=== PATIENT | female | born 1995 | race Caucasian/White ===

== ENCOUNTER 2019-12-01 03:04 | Emergency (ER) | payer OTHER, SELFPAY ==
[2019-12-01 03:06] VITALS: BP 122/91; PULSE 93; RESP 16; TEMP 36.6; O2SAT 100; BMI 38.0
[2019-12-01 03:32] LABS: Add Manual Diff / Slide Review NO; Basophils Absolute Auto 100 /uL (0-100); Basophils Percent Auto 0.6 % (0-2); Eosinophils Absolute Auto 100 /uL (0-450); Eosinophils Percent Auto 0.9 % (2-4); Hematocrit 40.8 % (36-46); Hemoglobin 14.2 g/dL (12.0-16.0); Lymphocytes Absolute Auto 2500 /uL (1100-4500); Mean Corpuscular HGB Conc 34.8 % (30-36); Mean Corpuscular Hemoglobin 32.3 PG (26-34); Mean Corpuscular Volume 92.9 fL (80-100); Monocytes Absolute Auto 600 /uL (0-900); Monocytes Percent Auto 6.7 % (3-14); Neutrophils Absolute Auto 5800 /uL (1500-7000); Neutrophils Percent Auto 63.8 % (50-75); Platelet Count 227 X10^3/uL (150-400); Red Blood Cell Count 4.39 X10^6/uL (4.0-5.2); Red Cell Distribution Width 12.6 % (11.6-14.8)
[2019-12-01 03:37] LABS: BUN Creatinine Ratio 10.7 (6-22); Blood Urea Nitrogen 9 mg/dL (7-17); Calcium 9.3 mg/dL (8.4-10.2); Carbon Dioxide 25 mmol/L (22-32); Chloride 106 mmol/L (98-107); Estimated Glomerular Filt Rate > 60.0 mL/min (>60); Glucose 91 mg/dL (70-100); HEMOLYSIS < 15 (0-50); Potassium 3.7 mmol/L (3.4-5.1); Sodium 137 mmol/L (137-145)
[2019-12-01 03:49] LABS: Pregnancy Test Serum,Qual Negative (Negative)
--- NOTE | 2019-12-01 03:50 | DI.US.S_ITS ---
PROCEDURE: US PELVIC COMPLETE INDICATIONS: DUB; PAIN TECHNIQUE: Real-time scanning was performed of the pelvic organs, with image documentation. Additional endovaginal scanning was necessary due to incomplete visualization of the adnexal and endometrial structures by transabdominal scanning. COMPARISON: None. FINDINGS: Transabdominal scanning: Limited scanning through the kidneys shows no hydronephrosis. No pathologic free abdominal or pelvic fluid. Endovaginal scanning: Uterus: Uterus is normal in size at 5.8 x 3.5 x 5.2 cm. The endometrium measures 0.5 cm in combined thickness. Ovaries: Right ovary measures 2.3 x 1.6 x 1.6 cm and the left ovary measures 2.6 x 1.8 x 1.3 cm. No adnexal masses. There is patent arterial flow demonstrated in the ovaries on Doppler interrogation. IMPRESSION: 1. Normal sonographic study of the pelvis. Dictated by: Yobany Matthew M.D. on 12/01/2019 at 9:23 Approved by: Yobany Matthew M.D. on 12/01/2019 at 9:25
[2019-12-01 03:54] LABS: Bacteria Urine None Seen; WBC Urine None Seen (0-5/HPF)
--- NOTE | 2019-12-01 04:00 | ED.ABDPAIN ---
HPI - Abdominal Pain General Chief Complaint: Abdominal Pain Stated Complaint: abdominal pain Time Seen by Provider: 12/01/19 03:06 Source: patient Mode of arrival: Ambulatory Limitations: no limitations History of Present Illness HPI narrative: 24F nonsmoker without chronic medical problems presents with a chief complaint of severe lower pelvic discomfort over the course of the night. She denies much in the way of specific provocation, palliation or radiation. She has had some dysuria and frequency but denies any fever, chills or back pain. She states that she had some problems with heavy menses a few months ago and had an alteration in her all control and has largely been better since then. She does state that she has had vaginal bleeding off and on for about the last month but denies any chance of . MD complaint: abdominal pain Onset (ago): hour(s) Pain Consistency: constant Location: suprapubic Severity: moderate Quality: cramping and aching Radiation: none Migration to: no migration Relieving factors: rest Exacerbating factors: movement Associated symptoms: nausea and dysuria Related Data Previous Rx's Medication Instructions Recorded ketorolac 10 mg PO Q6H PRN #14 tab 12/01/19 Review of Systems Constitutional Constitutional: Denies chills, Denies fatigue, Denies fever(s), Denies frequent falls, Denies lethargy and Denies weakness Eyes Eyes: Denies change in vision, Denies eye discharge, Denies irritation and Denies loss of vision ENT Ears, Nose, Mouth, and Throat: Denies change in voice, Denies dizziness, Denies neck pain, Denies sore throat and Denies throat swelling Cardiovascular Cardiovascular: Denies chest pain, Denies irregular heart rhythm, Denies lightheadedness, Denies palpitations, Denies dyspnea, Denies dyspnea on exertion and Denies orthopnea Respiratory Respiratory: Denies cough, Denies dyspnea, Denies dyspnea on exertion and Denies wheezing Gastrointestinal Gastrointestinal: Reports abdominal pain, Denies change in bowel habits, Denies diarrhea, Reports nausea and Denies vomiting Genitourinary Genitourinary: Reports difficulty urinating Genitourinary: Reports abnormal menses, Reports abnormal vaginal bleeding and Reports metrorrhagia Musculoskeletal Musculoskeletal: Denies neck pain and Denies numbness Integumentary/Breasts Skin/Breast: Denies pruritus, Denies erythema, Denies rash and Denies wounds Neurologic Neurologic: Denies behavioral changes, Denies confusion, Denies dizziness, Denies frequent falls, Denies loss of vision, Denies numbness and Denies weakness Psychiatric Psychiatric: Denies anxiety, Denies behavioral changes, Denies confusion, Denies depression, Denies homicidal ideation and Denies suicidal ideation Endocrine Endocrine: Denies fatigue, Denies flushing and Denies palpitations Hematologic/Lymphatic Hematologic/Lymphatic: Denies easy bruising Allergic/Immunologic Allergic/Immunologic: Denies urticaria, Denies throat swelling and Denies wheezing Patient History Social History Smoking Status: Never smoker Smoking Status: Never smoker Substance Use Type: does not use Exam Narrative Exam Narrative: GENERAL: [24] year old patient appears stated age. Well-nourished, well-developed patient, in moderate distress, obviously uncomfortable HEAD: Atraumatic. Normocephalic. EYES: Pupils equal round and reactive. Extraocular motions intact. No scleral icterus. No injection or drainage. ENT: Nose without bleeding, purulent drainage. Throat without erythema, tonsillar hypertrophy or exudate. Airway patent. NECK: Trachea midline. Non tender CARDIOVASCULAR: Regular rate and rhythm without murmurs, gallops, or rubs. RESPIRATORY: Clear to auscultation. Breath sounds equal bilaterally. No wheezes, rales, or rhonchi. GASTROINTESTINAL: Abdomen soft, tender in the suprapubic region, nondistended. EXTREMITIES: No edema or joint tenderness. BACK: Nontender without deformity or crepitance. No flank tenderness. NEURO: AOx3. SKIN: No rash or erythema of visible areas Initial Vital Signs Initial Vital Signs: Vital Signs Temperature 97.9 F 12/01/19 03:06 Pulse Rate 93 H 12/01/19 03:06 Respiratory Rate 16 12/01/19 03:06 Blood Pressure 122/91 H 12/01/19 03:06 Pulse Oximetry 100 12/01/19 03:06 Course Orders Ordered: ED Orders 12/01/19 03:19 Basic Metabolic Panel Stat Complete Blood Count AUTO DIFF Stat Test Serum,Qual Stat 12/01/19 03:43 Urine Microscopic Stat 12/01/19 03:50 US pelvic complete Stat Discontinued Medications Sodium Chloride (Normal Saline 0.9%) 1,000 mls @ 1,000 mls/hr IV BOLUS ONE Stop: 12/01/19 04:16 Last Admin: 12/01/19 04:07 Dose: 1,000 mls/hr Documented by: GARO Ketorolac Tromethamine (Toradol) 15 mg IV NOW ONE Stop: 12/01/19 03:51 Last Admin: 12/01/19 04:08 Dose: 15 mg Documented by: GARO Vital Signs Vital signs: Vital Signs - 8 hr 12/01/19 03:06 12/01/19 04:08 Temperature 97.9 F 98.6 F Pulse Rate 93 H Respiratory Rate 16 Blood Pressure 122/91 H Pulse Oximetry 100 MDM - Abdominal Pain Lab Data Result diagrams: 12/01/19 03:19 12/01/19 03:19 Labs: Lab Results 12/01/19 12/01/19 12/01/19 Range/Units 03:19 03:19 03:19 WBC 9.0 (4.5-11.0) X10^3/uL RBC 4.39 (4.0-5.2) X10^6/uL Hgb 14.2 (12.0-16.0) g/dL Hct 40.8 (36-46) % MCV 92.9 (80-100) fL MCH 32.3 (26-34) PG MCHC 34.8 (30-36) % RDW 12.6 (11.6-14.8) % Plt Count 227 (150-400) X10^3/uL Neut % (Auto) 63.8 (50-75) % Lymph % (Auto) 28.0 (25-40) % [place] % (Auto) 6.7 (3-14) % Eos % (Auto) 0.9 L (2-4) % Baso % (Auto) 0.6 (0-2) % Neut # (Auto) 5800 (5379-0300) /uL Lymph # (Auto) 2500 (3729-7466) /uL [place] # (Auto) 600 (0-900) /uL Eos # (Auto) 100 (0-450) /uL Baso # (Auto) 100 (0-100) /uL Sodium 137 (137-145) mmol/L Potassium 3.7 (3.4-5.1) mmol/L Chloride 106 (98-107) mmol/L Carbon Dioxide 25 (22-32) mmol/L BUN 9 (7-17) mg/dL Creatinine 0.84 (0.52-1.04) mg/dL Estimated GFR > 60.0 (>60) mL/min BUN/Creatinine Ratio 10.7 (6-22) Glucose 91 (70-100) mg/dL Calcium 9.3 (8.4-10.2) mg/dL Serum , Qual Negative (Negative) Urine RBC (0-5/HPF) Urine WBC (0-5/HPF) Ur Squamous Epith Cells (0-5/HPF) Urine Bacteria (None) Ur Culture Indicated? 12/01/19 Range/Units 03:43 WBC (4.5-11.0) X10^3/uL RBC (4.0-5.2) X10^6/uL Hgb (12.0-16.0) g/dL Hct (36-46) % MCV (80-100) fL MCH (26-34) PG MCHC (30-36) % RDW (11.6-14.8) % Plt Count (150-400) X10^3/uL Neut % (Auto) (50-75) % Lymph % (Auto) (25-40) % [place] % (Auto) (3-14) % Eos % (Auto) (2-4) % Baso % (Auto) (0-2) % Neut # (Auto) (8530-9796) /uL Lymph # (Auto) (1772-7716) /uL [place] # (Auto) (0-900) /uL Eos # (Auto) (0-450) /uL Baso # (Auto) (0-100) /uL Sodium (137-145) mmol/L Potassium (3.4-5.1) mmol/L Chloride (98-107) mmol/L Carbon Dioxide (22-32) mmol/L BUN (7-17) mg/dL Creatinine (0.52-1.04) mg/dL Estimated GFR (>60) mL/min BUN/Creatinine Ratio (6-22) Glucose (70-100) mg/dL Calcium (8.4-10.2) mg/dL Serum , Qual (Negative) Urine RBC 10-30/hpf H (0-5/HPF) Urine WBC None seen (0-5/HPF) Ur Squamous Epith Cells 0-1 /hpf (0-5/HPF) Urine Bacteria None seen (None) Ur Culture Indicated? Cult not indicated Point of care testing: Point of Care Testing Test Results Negative Urine Dip Bedside Urine Glucose Negative Bedside Urine Bilirubin - Negative Bedside Urine Ketone - Negative Urine Specific [place] 1.015 Bedside Urine Occult Blood +++ Bedside Urine pH 7.0 Bedside Urine Protein - Negative Bedside Urine Urobilinogen - Negative Bedside Urine Nitrite - Negative Bedside Urine Leukocytes - Negative Esterase Imaging Data [place] - [employer]: Radiologist's Impression: no significant abnormality MDM Narrative Medical decision making narrative: Multiple etiologies for patient's symptoms considered including: [Ectopic versus endometriosis versus urinary tract infection vs other] Patient's symptoms improved or duration of stay with above-stated therapies. Findings and discharge diagnosis discussed with patient/family followed by verbalization of understanding Return precautions discussed with patient/family whom verbalize understanding. Discharge Plan Departure Patient Disposition: Home Clinical Impression: Pelvic pain Instructions: DI for Pelvic Pain Activity Restrictions/Additional Instructions: *You have been diagnosed with [pelvic pain likely a gynecologic problem] *What to do: *Take medications as directed *Follow up with your primary care provider in 2-3 days, call for an appointment. Let them know you were seen in the Emergency Department and that we ask that you be seen in follow up *Return to ER if you should have any new, worsening or concerning symptoms, such as [increasing pain, persistent vomiting, fever >101F, vaginal bleeding through more than a pad per hour for multiple hours or other concerning symptoms ] Prescriptions: New ketorolac 10 mg tablet 10 mg PO Q6H PRN (Reason: pain) Qty: 14 RF: 0
[2019-12-01] MEDS: SODIUM CHLORIDE 0.9% 1,000 ML 1000 ML IV (04:07)
[2019-12-01 04:08] VITALS: TEMP 37
[2019-12-01] MEDS: KETOROLAC 60 MG/2 ML VIAL 15 MG IV (04:08)
[2019-12-01 04:12] LABS: Culture Indicated Urine Cult Not Indicated; RBC Urine 10-30/HPF (0-5/HPF); Squamous Epithelial Cell Urine 0-1 /HPF (0-5/HPF)
[2019-12-01 05:24] VITALS: BP 112/70; PULSE 77; RESP 16; TEMP 36.8; O2SAT 99
== END 2019-12-01 05:24 | disposition home or self-care (01) ==
PROVIDERS: Emergency Provider Emergency Medicine
DX: R10.2 Pelvic and perineal pain (principal); R30.0 Dysuria
CPT/HCPCS: 36415; 76830; 76856; 80048; 81003; 81015; 81025; 84703; 85025; 96361; 96374; 99284; J1885

== ENCOUNTER → 2020-10-15 07:56 | Outpatient (CLI) | payer OTHER, SELFPAY ==
[2020-10-15] MEDS: COVID-19 VACC #1, MRNA(MOD) 100 MCG/0.5 ML VIAL IM (08:05)
== END ==
PROVIDERS: Visit Provider Internal Medicine
DX: Z23 Encounter for immunization (principal)
CPT/HCPCS: 0011A; 91301

== ENCOUNTER → 2020-11-12 07:50 | Outpatient (CLI) | payer OTHER, SELFPAY ==
[2020-11-12] MEDS: COVID-19 VACC #2, MRNA(MOD) 100 MCG/0.5 ML VIAL IM (07:57)
== END ==
PROVIDERS: Visit Provider Internal Medicine
DX: Z23 Encounter for immunization (principal)
CPT/HCPCS: 0012A; 91301

== ENCOUNTER 2023-08-14 16:54 | Emergency (ER) | payer OTHER, SELFPAY ==
[2023-08-14 17:03] VITALS: BP 116/75; PULSE 72; RESP 18; TEMP 36.5; O2SAT 98; BMI 17.2
--- NOTE | 2023-08-14 17:08 | DI.US.S_ITS ---
PROCEDURE: US PELVIC COMPLETE INDICATIONS: BLEEDING. HOME + . [facility] - TECHNIQUE: Real-time scanning was performed of the pelvic organs, with image documentation. Additional endovaginal scanning was necessary due to incomplete visualization of the adnexal and endometrial structures by transabdominal scanning. COMPARISON: [facility], US, US PELVIC COMPLETE, 12/01/2019, 4:26. FINDINGS: Uterus: Uterus is anteverted and normal in size at 6.7 x 3.3 x 5.1 cm. The myometrium is homogeneous. The endometrium measures 4.9 mm combined thickness. No IUP is identified. Ovaries: The right ovary measures 2.4 x 3.0 x 1.9 cm, with a calculated ovarian volume of 7.2 cc. The left ovary measures 2.5 x 1.6 x 1.9 cm, with a calculated ovarian volume of 4.1 cc. The ovaries have a normal sonographic appearance. Less than 12 follicles can be seen in each ovary. No adnexal masses are seen. Other: No pathologic free abdominal or pelvic fluid. IMPRESSION: 1. No IUP is identified or ectopic presence is identified. The finding may be secondary to early . Recommend clinical correlation and follow-up imaging if clinically indicated. 2. Normal ovaries. We strive to produce accurate, complete, and clear reports of imaging services. To assist us in improving patient care, this report was composed using standard report templates and voice recognition software. Therefore, it may contain abnormal punctuation, insertions and/or omissions. Occasional wrong-word or sound-alike substitutions may occur. Though we review the report and make efforts to correct it, we do recommend that the report be read carefully in proper context to recognize any text inaccuracies. Dictated by: Mariangel Agosto M.D. on 08/14/2023 at 18:14 Approved by: Mariangel Agosto M.D. on 08/14/2023 at 18:16
[2023-08-14 17:47] LABS: Bacteria Urine Occasional (0-1); Culture Indicated Urine Cult Not Indicated; RBC Urine 1-5/HPF (0-5/HPF); Squamous Epithelial Cell Urine 0-1 /HPF (0-5/HPF); Urine Volume 10mL (spun); WBC Urine 0-1/HPF (0-5/HPF)
[2023-08-14 17:57] LABS: Alanine Aminotransferase 16 IU/L (<35); Albumin 4.5 g/dL (3.5-5.0); Albumin Globulin Ratio 1.3 (1.0-2.8); Alkaline Phosphatase 63 U/L (38-126); Aspartate Aminotransferase 24 IU/L (14-36); BUN Creatinine Ratio 14.3 (6-22); Bilirubin Total 0.5 mg/dL (0.2-1.3); Blood Urea Nitrogen 11 mg/dL (7-17); Calcium 9.2 mg/dL (8.4-10.2); Carbon Dioxide 25 mmol/L (22-32); Chloride 104 mmol/L (98-107); Estimated Glomerular Filt Rate > 60 mL/min (>60); Globulin 3.5 g/dL (1.7-4.1); Glucose 92 mg/dL (70-100); HEMOLYSIS < 15 (0-50); Potassium 3.5 mmol/L (3.4-5.1); Sodium 140 mmol/L (137-145)
--- NOTE | 2023-08-14 18:11 | ED_ITS ---
HPI - Female Genitourinary <Saloni Loo PA-C - Last Filed: 08/14/23 19:10> General Chief complaint: Urogenital-Female Stated complaint: 6 wks , vaginal bleeding Time Seen by Provider: 08/14/23 17:48 Source: patient Mode of arrival: Ambulatory History of Present Illness HPI Narrative: 28-year-old female presents to the ED with 1st trimester vaginal bleeding. Patient states she is 6 weeks , had 2 positive test, 1 at home and 1 in a clinic last week. Patient states that she started experiencing some pelvic cramping and vaginal bleeding 5 days ago. The bleeding and cramping has since then subsided, patient still has some mild spotting but no cramping. Patient denies fever, chills, chest pain, shortness of breath, abdominal pain, nausea, vomiting, dysuria, lightheadedness, dizziness, syncope. Related Data Previous Rx's Medication Instructions Recorded ketorolac 10 mg tablet 10 mg PO Q6H PRN pain #14 tabs 12/01/19 Allergies Allergy/AdvReac Type Severity Reaction Status Date / Time No Known Drug Allergies Allergy Verified 08/14/23 17:07 Review of Systems <Saloni Loo PA-C - Last Filed: 08/14/23 19:10> Constitutional Constitutional: Denies chills, Denies fatigue, Denies fever(s), Denies frequent falls, Denies lethargy and Denies weakness Eyes Eyes: Denies change in vision, Denies eye discharge, Denies irritation and Denies loss of vision ENT Ears, Nose, Mouth, and Throat: Denies change in voice, Denies dizziness, Denies neck pain, Denies sore throat and Denies throat swelling Cardiovascular Cardiovascular: Denies chest pain, Denies irregular heart rhythm, Denies lightheadedness, Denies palpitations, Denies dyspnea, Denies dyspnea on exertion and Denies orthopnea Respiratory Respiratory: Denies cough, Denies dyspnea, Denies dyspnea on exertion and Denies wheezing Gastrointestinal Gastrointestinal: Denies abdominal pain, Denies change in bowel habits, Denies diarrhea, Denies nausea and Denies vomiting Genitourinary Genitourinary: Reports abnormal vaginal bleeding and Reports pelvic pain Musculoskeletal Musculoskeletal: Denies neck pain and Denies numbness Integumentary/Breasts Skin/Breast: Denies pruritus, Denies erythema, Denies rash and Denies wounds Neurologic Neurologic: Denies behavioral changes, Denies confusion, Denies dizziness, Denies frequent falls, Denies loss of vision, Denies numbness and Denies weakness Psychiatric Psychiatric: Denies anxiety, Denies behavioral changes, Denies confusion, Denies depression, Denies homicidal ideation and Denies suicidal ideation Endocrine Endocrine: Denies fatigue, Denies flushing and Denies palpitations Hematologic/Lymphatic Hematologic/Lymphatic: Denies easy bruising Allergic/Immunologic Allergic/Immunologic: Denies urticaria, Denies throat swelling and Denies wheezing Patient History <Saloni Loo PA-C - Last Filed: 08/14/23 19:10> Substance Use Type: does not use Exam <ALEX Mckeon Last Filed: 08/14/23 19:10> Narrative Exam Narrative: Const General:?cooperative, healthy appearing and comfortable HENFL Head:?normal to inspection Ears:?hearing grossly normal bilaterally Nose:?external nose normal Face and sinus:?normal facial exam and sinuses nontender Mouth:?oral mucosae normal Throat:?posterior oropharynx normal Eyes General:?appearance normal, both eyes and all related structures Neck Neck:?normal visual inspection and no lymphadenopathy noted Resp Effort & Inspection:?normal respiratory effort Auscultation:?clear to auscultation bilaterally Cardio Rate:?regular rate Rhythm:?regular rhythm Neuro General:?patient alert, patient awake and patient oriented x3 Initial Vital Signs Initial Vital Signs: Vital Signs Temperature 97.7 F 08/14/23 17:03 Pulse Rate 72 08/14/23 17:03 Respiratory Rate 18 08/14/23 17:03 Blood Pressure 116/75 08/14/23 17:03 Pulse Oximetry 98 08/14/23 17:03 Oxygen Delivery Method Room Air 08/14/23 17:03 <Jackie Guerra DO - Last Filed: 08/17/23 23:20> Initial Vital Signs Initial Vital Signs: Vital Signs Temperature 97.7 F 08/14/23 17:03 Pulse Rate 72 08/14/23 17:03 Respiratory Rate 18 08/14/23 17:03 Blood Pressure 116/75 08/14/23 17:03 Pulse Oximetry 98 08/14/23 17:03 Oxygen Delivery Method Room Air 08/14/23 17:03 Course <Saloni Loo PA-C - Last Filed: 08/14/23 19:10> Orders Ordered: ED Orders 08/14/23 17:08 US pelvic complete Stat 08/14/23 17:15 Urine Microscopic Stat 08/14/23 17:25 Complete Blood Count AUTO DIFF Stat Comprehensive Metabolic Panel Stat HCG Quantitative /Beta subunit Stat 08/14/23 17:32 Type and Screen Stat Vital Signs Vital signs: Vital Signs - 8 hr 08/14/23 17:03 08/14/23 18:22 Temperature 97.7 F 98.2 F Pulse Rate 72 70 Respiratory Rate 18 16 Blood Pressure 116/75 105/67 Pulse Oximetry 98 100 Oxygen Delivery Method Room Air Room Air <Jackie Guerra DO - Last Filed: 08/17/23 23:20> Orders Ordered: ED Orders 08/14/23 17:08 US pelvic complete Stat 08/14/23 17:15 Urine Microscopic Stat 08/14/23 17:25 Complete Blood Count AUTO DIFF Stat Comprehensive Metabolic Panel Stat HCG Quantitative /Beta subunit Stat 08/14/23 17:32 Type and Screen Stat Vital Signs Vital signs: Vital Signs - 8 hr 08/14/23 17:03 08/14/23 18:22 Temperature 97.7 F 98.2 F Pulse Rate 72 70 Respiratory Rate 18 16 Blood Pressure 116/75 105/67 Pulse Oximetry 98 100 Oxygen Delivery Method Room Air Room Air MDM - Female Genitourinary <Saloni Loo PA-C - Last Filed: 08/14/23 19:10> Lab Data 08/14/23 17:25 08/14/23 17:25 Labs: Lab Results 08/14/23 08/14/23 08/14/23 Range/Units 17:15 17:25 17:32 WBC 6.1 (4.5-11.0) X10^3/uL RBC 4.52 (4.0-5.2) X10^6/uL Hgb 14.5 (12.0-16.0) g/dL Hct 42.1 (36-46) % MCV 93.2 (80-100) fL MCH 32.0 (26-34) PG MCHC 34.4 (30-36) % RDW 12.6 (11.6-14.8) % Plt Count 235 (150-400) X10^3/uL Neut % (Auto) 60.4 (50-75) % Lymph % (Auto) 31.7 (25-40) % [place] % (Auto) 6.4 (3-14) % Eos % (Auto) 0.9 L (2-4) % Baso % (Auto) 0.6 (0-2) % Neut # (Auto) 3700 (3271-9916) /uL Lymph # (Auto) 1900 (2207-6011) /uL [place] # (Auto) 400 (0-900) /uL Eos # (Auto) 100 (0-450) /uL Baso # (Auto) 0 (0-100) /uL Sodium 140 (137-145) mmol/L Potassium 3.5 (3.4-5.1) mmol/L Chloride 104 (98-107) mmol/L Carbon Dioxide 25 (22-32) mmol/L BUN 11 (7-17) mg/dL Creatinine 0.77 (0.52-1.04) mg/dL Estimated GFR > 60 (>60) mL/min BUN/Creatinine Ratio 14.3 (6-22) Glucose 92 (70-100) mg/dL Calcium 9.2 (8.4-10.2) mg/dL Total Bilirubin 0.5 (0.2-1.3) mg/dL AST 24 (14-36) IU/L ALT 16 (<35) IU/L Alkaline Phosphatase 63 (38-126) U/L Total Protein 8.0 (6.3-8.2) g/dL Albumin 4.5 (3.5-5.0) g/dL Globulin 3.5 (1.7-4.1) g/dL Albumin/Globulin Ratio 1.3 (1.0-2.8) HCG, Quant 3.5 mIU/mL Urine RBC 1-5/hpf D (0-5/HPF) Urine WBC 0-1/hpf (0-5/HPF) Ur Squamous Epith Cells 0-1 /hpf (0-5/HPF) Urine Bacteria Occasional (0-1) (None) Ur Culture Indicated? Cult not indicated Vol Urine Centrifuged 10ml (spun) Blood Type O Negative Antibody Screen Negative Point of Care Testing Test Results Negative Urine Dip Bedside Urine Glucose Negative Bedside Urine Bilirubin - Negative Bedside Urine Ketone - Negative Urine Specific [place] 1.005 Bedside Urine Occult Blood +++ Bedside Urine pH 6.0 Bedside Urine Protein - Negative Bedside Urine Urobilinogen +/- 1mg Bedside Urine Nitrite - Negative Bedside Urine Leukocytes - Negative Esterase MDM Narrative Medical decision making narrative: 28-year-old female presents to the ED with 1st trimester vaginal bleeding. Concern for intrauterine versus ectopic versus threatened miscarriage versus complete miscarriage versus other. Obtained labs, quantitative hCG, UA, ultrasound pelvic. Labs within normal limits. HCG negative for . Urine hCG also negative. No UTI. No IUP or ectopic is identified on ultrasound. Normal ovaries. Discussed findings with patient, patient's presentation most consistent with a complete miscarriage. Recommend follow-up with OBGYN. ED return precautions discussed with patient. Patient verbalized understanding. Medical records reviewed: Yes <Jackie Guerra, - Last Filed: 08/17/23 23:20> Lab Data Labs: Lab Results 08/14/23 08/14/23 08/14/23 Range/Units 17:15 17:25 17:32 WBC 6.1 (4.5-11.0) X10^3/uL RBC 4.52 (4.0-5.2) X10^6/uL Hgb 14.5 (12.0-16.0) g/dL Hct 42.1 (36-46) % MCV 93.2 (80-100) fL MCH 32.0 (26-34) PG MCHC 34.4 (30-36) % RDW 12.6 (11.6-14.8) % Plt Count 235 (150-400) X10^3/uL Neut % (Auto) 60.4 (50-75) % Lymph % (Auto) 31.7 (25-40) % [place] % (Auto) 6.4 (3-14) % Eos % (Auto) 0.9 L (2-4) % Baso % (Auto) 0.6 (0-2) % Neut # (Auto) 3700 (7468-0477) /uL Lymph # (Auto) 1900 (9874-0005) /uL [place] # (Auto) 400 (0-900) /uL Eos # (Auto) 100 (0-450) /uL Baso # (Auto) 0 (0-100) /uL Sodium 140 (137-145) mmol/L Potassium 3.5 (3.4-5.1) mmol/L Chloride 104 (98-107) mmol/L Carbon Dioxide 25 (22-32) mmol/L BUN 11 (7-17) mg/dL Creatinine 0.77 (0.52-1.04) mg/dL Estimated GFR > 60 (>60) mL/min BUN/Creatinine Ratio 14.3 (6-22) Glucose 92 (70-100) mg/dL Calcium 9.2 (8.4-10.2) mg/dL Total Bilirubin 0.5 (0.2-1.3) mg/dL AST 24 (14-36) IU/L ALT 16 (<35) IU/L Alkaline Phosphatase 63 (38-126) U/L Total Protein 8.0 (6.3-8.2) g/dL Albumin 4.5 (3.5-5.0) g/dL Globulin 3.5 (1.7-4.1) g/dL Albumin/Globulin Ratio 1.3 (1.0-2.8) HCG, Quant 3.5 mIU/mL Urine RBC 1-5/hpf D (0-5/HPF) Urine WBC 0-1/hpf (0-5/HPF) Ur Squamous Epith Cells 0-1 /hpf (0-5/HPF) Urine Bacteria Occasional (0-1) (None) Ur Culture Indicated? Cult not indicated Vol Urine Centrifuged 10ml (spun) Blood Type O Negative Antibody Screen Negative Point of Care Testing Test Results Negative Urine Dip Bedside Urine Glucose Negative Bedside Urine Bilirubin - Negative Bedside Urine Ketone - Negative Urine Specific [place] 1.005 Bedside Urine Occult Blood +++ Bedside Urine pH 6.0 Bedside Urine Protein - Negative Bedside Urine Urobilinogen +/- 1mg Bedside Urine Nitrite - Negative Bedside Urine Leukocytes - Negative Esterase Discharge Plan Departure Patient Disposition: Home Clinical Impression: Miscarriage Instructions: Miscarriage Activity Restrictions/Additional Instructions: You were evaluated in the ED today for vaginal bleeding and pelvic cramping during early . Your urine and blood tests were negative for today in the emergency department the ultrasound did not identify a intrauterine or ectopic . Given that you had positive test last week, it is most likely that you had a complete miscarriage. Please continue to monitor your symptoms and return to the ED if you have worsening symptoms. Please follow-up with an OBGYN as soon as possible. Prescriptions: No Action ketorolac 10 mg tablet 10 mg PO Q6H PRN (Reason: pain) Qty: 14 0RF Referrals: Nevaeh Pascal ARNP [Primary Care Provider] - Stand Alone Forms: Patient Portal/API ED Sign-out <Jackie Guerra DO - Last Filed: 08/17/23 23:20> Cosign ED Attending Cara Attestation: I was immediately available in the department for consultation.
[2023-08-14 18:13] LABS: HCG Quantitative /Beta subunit 3.5 mIU/mL
--- NOTE | 2023-08-14 18:15 | PC.NURSE ---
Pt reports she thinks she is about 6 weeks . Had cramping and bleeding thierry that has now turned into dark red/brown spotting. Denies pain.
[2023-08-14 18:18] LABS: Add Manual Diff / Slide Review NO; Basophils Absolute Auto 0 /uL (0-100); Basophils Percent Auto 0.6 % (0-2); Eosinophils Absolute Auto 100 /uL (0-450); Eosinophils Percent Auto 0.9 % (2-4); Hematocrit 42.1 % (36-46); Hemoglobin 14.5 g/dL (12.0-16.0); Lymphocytes Absolute Auto 1900 /uL (1100-4500); Lymphocytes Percent Auto 31.7 % (25-40); Mean Corpuscular HGB Conc 34.4 % (30-36); Mean Corpuscular Volume 93.2 fL (80-100); Monocytes Absolute Auto 400 /uL (0-900); Monocytes Percent Auto 6.4 % (3-14); Neutrophils Absolute Auto 3700 /uL (1500-7000); Neutrophils Percent Auto 60.4 % (50-75); Platelet Count 235 X10^3/uL (150-400); Red Blood Cell Count 4.52 X10^6/uL (4.0-5.2); Red Cell Distribution Width 12.6 % (11.6-14.8); White Blood Cell Count 6.1 X10^3/uL (4.5-11.0)
[2023-08-14 18:22] VITALS: BP 105/67; PULSE 70; RESP 16; TEMP 36.8; O2SAT 100
== END 2023-08-14 18:42 | disposition home or self-care (01) ==
PROVIDERS: Emergency Medicine; Emergency Provider Student in an Organized Health Care Education/Training Program; PCP Nurse Practitioner Family
DX: O03.9 Complete or unspecified spontaneous abortion without complication (principal)
CPT/HCPCS: 76856; 80053; 81003; 81015; 81025; 84702; 85025; 86850; 86900; 86901; 99282; 99283